=== PATIENT | male | born 2000 | race Two or more races ===

== ENCOUNTER 2024-09-15 03:55 | Emergency (ER) | payer MEDICAID, SELFPAY ==
[2024-09-15 03:56] VITALS: BP 175/108; PULSE 100; RESP 17; TEMP 36.7; O2SAT 98
[2024-09-15] MEDS: AMOXICILLIN/POT CLAV 875 TABLET 1 TAB PO (04:23)
[2024-09-15] MEDS: DEXAMETHASONE SOD PHOS INJ 10 MG/ML VIAL PO (04:24)
--- NOTE | 2024-09-15 04:26 | EDNOTE_ITS ---
<Statement entered by Estela Kay MD - 09/15/24 18:32> As co-signing physician, I was present and available for consult prn. I concur with the plan and care as documented by the midlevel provider. Upper Respiratory Inf. RME/HPI General Chief Complaint: Headache Stated Complaint: sinus pressure, headache, ears plugged Time Seen by Provider: 09/15/24 04:13 Arrival date/time: 09/15/24 03:55 24M with history of asthma and psych presents to ED with several days of cough, nasal congestion/pressure/pain, RIVERS, and ear plugged sensation. Limitations: no limitations Related Data Home Medications ?Medication ?Instructions ?Recorded ?Confirmed quetiapine 100 mg tablet 100 mg PO HS 06/01/21 sertraline 100 mg tablet 100 mg PO QDAY 06/01/2105/09 trazodone 100 mg tablet 100 mg PO QDAY 06/01/2105/09 Previous Rx's ?Medication ?Instructions ?Recorded dicyclomine 20 mg tablet 20 mg PO TID PRN pain #30 ta bs 12/26/21 ondansetron 4 mg disintegrating 4 mg PO Q8H PRN nausea and 12/26/21 tablet vomiting #10 tabs ibuprofen 800 mg tablet 800 mg PO TID PRN pain #30 t abs 01/02/22 amoxicillin 875 mg-potassium 1 tab PO BID 7 days #14 t abs 09/15/24 clavulanate 125 mg tablet Allergies Allergy/AdvReac Type Severity Reaction Status Date / Time No Known Allergies Allergy Verified 01/02/22 16:18 Review of Systems Review of Systems Systems Reviewed: All systems reviewed, normal except as documented Constitutional Constitutional: Reports system reviewed and no additional complaints, except as documented, Reports as per HPI, Denies fever(s) and Reports headache(s) ENT Ears, Nose, Mouth, and Throat: Reports as per HPI, Denies disequilibrium, Reports headache(s), Reports sinus pain and Reports sinus pressure Cardiovascular Cardiovascular: Reports system reviewed and no additional complaints, except as documented, Denies chest pain and Denies dyspnea Respiratory Respiratory: Reports system reviewed and no additional complaints, except as documented, Reports as per HPI, Reports cough and Denies dyspnea Gastrointestinal Gastrointestinal: Reports system reviewed and no additional complaints, except as documented, Denies abdominal pain, Denies nausea and Denies vomiting Neurologic Neurologic: Reports system reviewed and no additional complaints, except as documented, Denies confusion, Denies disequilibrium and Reports headache(s) Psychiatric Psychiatric: Denies confusion Past Medical History Past Medical History NEUROLOGIC: Negative Neurological Disorders CARDIAC: Positive Cardiac Disorders and Hypertension; Negative Congestive Heart Failure RESPIRATORY: Positive Asthma and Bronchitis; Negative Chronic Obstructive Pulmonary Disease (COPD) GASTROINTESTINAL: Negative Gastrointestinal Disorders GENITOURINARY: Negative Genitourinary Disorders or Renal Disease MUSCULOSKELETAL: Negative Musculoskeletal Disorders ENDOCRINE: Negative Endocrine Disorders, Diabetes Mellitus Type 1 or Diabetes Mellitus Type 2 HEMATOLOGIC: Negative Blood Disorders PSYCHO/SOCIAL: Positive Depression, Anxiety, Behavior Problems and Self- Mutilation Social History SMOKING STATUS: Never smoker SUBSTANCE USE: marijuana 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 Exam General Limitations: Present no limitations General appearance: Present alert and in no apparent distress Head Head exam: Present atraumatic Eye Eye exam: Present normal appearance, PERRL and EOMI ENT ENT exam: Present normal oropharynx and mucous membranes moist Expanded ENT Exam TM/Canal exam: Bilateral TM: effusion Nose exam: Present sinus tenderness Neck Neck exam: Present normal inspection, full ROM and trachea midline Chest Chest inspection: Present normal inspection and symmetric chest wall rise Respiratory Respiratory exam: Present normal lung sounds bilaterally Cardiovascular Cardiovascular exam: Present regular rate, normal rhythm and normal heart sounds Abdominal Exam Abdominal exam: Present soft and normal bowel sounds Extremities Exam Extremities exam: Present normal inspection and full ROM Back Exam Back exam: Present normal inspection and full ROM Neurological Exam Neurological exam: Present alert, oriented X3 and CN II-XII intact Psychiatric Psychiatric exam: Present normal affect and normal mood Skin Skin exam: Present warm, dry, intact and normal color Course Quality Measures none Orders Category Date Time Status Amoxicillin/Pot Clav 875 [Augmentin 875] Med 09/15/24 04:14 Discontinued 1 tab PO X1 ONE Dexamethasone Inj [Decadron Inj] Med 09/15/24 04:14 Discontinued 10 mg PO X1 ONE Vital Signs Vital signs: Vital Signs Temperature 98.0 F 09/15/24 03:56 Pulse Rate 100 09/15/24 03:56 Respiratory Rate 17 09/15/24 03:56 Blood Pressure 175/108 H 09/15/24 03:56 Pulse Oximetry (%) 98 09/15/24 03:56 Oxygen Delivery Method Room Air 09/15/24 03:56 O2 at 98% on RA and WNLs Upper Respiratory Infection MDM Narrative MDM Narrative:: 24M with history of asthma and psych presents to ED with several days of cough, nasal congestion/pressure/pain, RIVERS, and ear plugged sensation. Physical exam reveals bilateral effusion in TMs. Sinus tenderness. Patient is afebrile, calm, and alert. Likely sinusitis. Patient data External records reviewed:: [facility] previous records Clinical information provided by:: patient Social determinants that could affect healthcare access:: mental health Patient has the following chronic illnesses:: psych and asthma How is presenting disease/condition affected by chronic disease/condition?: exacerbated by Evaluation data The following diagnostics were reviewed and interpreted by me:: other (specify) (none) Lab and/or radiology exams considered but not ordered:: not ordered Interpretation Summary: n/a Medications / Prescriptions Medications or Prescriptions considered but not ordered:: ordered Medication administrations:: Medication Administration History Discontinued Medications Amoxicillin/Clavulanate Potassium (Amoxicillin/Pot Clav 875 Tablet) 1 tab PO X1 ONE Stop: 09/15/24 04:15 Dexamethasone Sodium Phosphate (Dexamethasone Sod Phos Inj 10 Mg/Ml Vial) 10 mg PO X1 ONE Stop: 09/15/24 04:15 above Consultations Consultation(s) initiated? (list below): No Diagnosis Upper Respiratory Differential Diagnosis: upper respiratory infection, croup, otitis media, sinusitis, viral infection, bronchitis, influenza and pharyngitis Most likely diagnosis given after review of the tests above:: sinusitis Admission Indicated Admission indicated?: not indicated Admission Request Was there a request for admission?: No Disposition Plan Disposition Plan: Discharge Discharge Attestation Discharge Attestation: The patient and all family members were given an opportunity to ask questions and understood the discharge instructions. Discharge instructions specifically effects, indications for sooner follow up or return to the emergency department, and the expected course of current diagnosis. Patient condition: Stable Discharge Plan Plan Patient Disposition: HOME (Self Care) Discharge Disposition comment: Stable Prescriptions/Referrals Prescriptions/Med Rec: New amoxicillin-pot clavulanate 875-125 mg tablet 1 tab PO BID 7 Days Qty: 14 0RF No Action sertraline 100 mg tablet 100 mg PO QDAY Patient Comments: TAKE ONE TABLET BY MOUTH EVERY MORNING quetiapine 100 mg tablet 100 mg PO HS Patient Comments: TAKE ONE TABLET BY MOUTH AT BEDTIME trazodone 100 mg tablet 100 mg PO QDAY Patient Comments: TAKE ONE TABLET BY MOUTH EVERY EVENING AT BED TIME dicyclomine 20 mg tablet 20 mg PO TID PRN (Reason: pain) Qty: 30 0RF ondansetron 4 mg tablet,disintegrating 4 mg PO Q8H PRN (Reason: nausea and vomiting) Qty: 10 0RF ibuprofen 800 mg tablet 800 mg PO TID PRN (Reason: pain) Qty: 30 0RF Problem List Clinical Impression: Sinusitis Patient/Caregiver Discharge Instructions Education Materials: ED Sinusitis (Antibiotic Treatment) Additional Instructions: Please follow-up with PCP within 24-48 hours and return immediately if symptoms worsen. Ibuprofen/Tylenol can be used simultaneously for greater fever/pain control. Benadryl is good for cough, congestion, and sleep. Print Language: Marshallese Stand Alone Forms: Patient Portal Info Letter PA/CHOKE SETTER Supervising Physician HAMMAD/CHOKE SETTER Supervising Physician: Dr. Kay
--- NOTE | 2024-09-15 04:31 | PC.NURSE ---
DECADRON WAS PO.
== END 2024-09-15 04:32 | disposition home or self-care (01) ==
LOC: SERX 04:17
PROVIDERS: Emergency Provider Emergency Medicine; PCP Family Medicine
DX: J32.9 Chronic sinusitis, unspecified (principal)
CPT/HCPCS: 99282; J1100; A9270

== ENCOUNTER 2024-11-08 02:33 | Emergency (ER) | payer MEDICAID, SELFPAY ==
[2024-11-08 02:34] VITALS: BMI 31.1
--- NOTE | 2024-11-08 02:37 | EKG_ITS ---
[facility] Test Date: 2024-11-08 Pat Name: JAYLYN GARCIA Department: Room: - Gender: Male Leader Writer: : 2000 Requested By: ED Temporary Provider Order Number: [id number] Reading MD: ED Temporary Provider Measurements Intervals [place] Rate: 108 P: 38 CA: 161 QRS: 82 QRSD: 92 T: 15 QT: 335 QTc: 450 Interpretive Statements SINUS TACHYCARDIA NONSPECIFIC T-WAVE ABNORMALITY ABNORMAL RHYTHM ECG Compared to ECG 04/03/2021 11:31:18 T-wave abnormality now present Right-axis deviation no longer present /store/S0/[id number].pdf
[2024-11-08 02:50] VITALS: BP 172/102; PULSE 91; RESP 18; TEMP 36.9; O2SAT 99
--- NOTE | 2024-11-08 02:59 | PD.EDSOB ---
ED SOB =RME/HPI General Chief Complaint: Shortness of Breath/Dyspnea Stated Complaint: SOB AND CHEST PRESSURE Time Seen by Provider: 11/08/24 02:47 Arrival date/time: 11/08/24 02:33 RME / HPI RME / HPI Narrative: 24-year-old male presents to the ED with a complaint of shortness of breath for the past 2 months, and cough with phlegm for the past 1 year. He has not visited with his primary care physician at [facility]. He takes no medications. He has had a runny nose and nasal congestion, occasional ear pain but no sore throat. He vomited x 1 tonight, and occasionally has posttussive emesis. He denies any diarrhea or abdominal pain. Related Data Home Medications ?Medication ?Instructions ?Recorded ?Confirmed quetiapine 100 mg tablet 100 mg PO HS 06/01/21 06/01/21 sertraline 100 mg tablet 100 mg PO QDAY 06/01/21 06/01/21 trazodone 100 mg tablet 100 mg PO QDAY 06/01/21 06/01/21 Previous Rx's ?Medication ?Instructions ?Recorded dicyclomine 20 mg tablet 20 mg PO TID PRN pain #30 tabs 12/26/21 ondansetron 4 mg disintegrating 4 mg PO Q8H PRN nausea and 12/26/21 tablet vomiting #10 tabs ibuprofen 800 mg tablet 800 mg PO TID PRN pain #30 tabs 01/02/22 albuterol sulfate 90 mcg/actuation 2 puff inhalation Q4H PRN 11/08/24 aerosol inhaler shortness of breath or wheezing #8.5 grams azithromycin 250 mg tablet 250 mg PO QDAY 4 days #4 tabs 11/08/24 (Zithromax Z-Nikhil) cetirizine 10 mg tablet (Zyrtec) 10 mg PO QDAY PRN allergy symptoms 11/08/24 #30 tabs Allergies Allergy/AdvReac Type Severity Reaction Status Date / Time No Known Allergies Allergy Verified 11/08/24 02:34 Review of Systems Review of Systems Systems Reviewed: All systems reviewed, normal except as documented Past Medical History Past Medical History NEUROLOGIC: Negative Neurological Disorders CARDIAC: Positive Cardiac Disorders and Hypertension; Negative Congestive Heart Failure RESPIRATORY: Positive Asthma and Bronchitis; Negative Chronic Obstructive Pulmonary Disease (COPD) GASTROINTESTINAL: Negative Gastrointestinal Disorders GENITOURINARY: Negative Genitourinary Disorders or Renal Disease MUSCULOSKELETAL: Negative Musculoskeletal Disorders ENDOCRINE: Negative Endocrine Disorders, Diabetes Mellitus Type 1 or Diabetes Mellitus Type 2 HEMATOLOGIC: Negative Blood Disorders PSYCHO/SOCIAL: Positive Depression, Anxiety, Behavior Problems and Self-Mutilation Social History SMOKING STATUS: Current every day smoker SUBSTANCE USE: marijuana 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 TMs and pharynx are without erythema. Nares are very pale and boggy. No maxillary or frontal sinus tenderness. Lung are clear, RRR, Abdomen is soft, nontender, and non-distended. Moves all extremities well. Course Course Course Narrative: Initial blood pressure 172/102. Repeat blood pressure 156/98 COVID, influenza A/B, rapid strep are all negative. CBC reveals a normal white count of 9.2, minimally elevated hemoglobin of 16.5 with normal platelets. CMP reveals normal electrolytes with the exception of a minimally elevated glucose of 113. Renal function is normal. ALT is mildly elevated at 60, normal alk phos, and total bilirubin. LDH is normal at 192, troponin is normal at less than 0.020, BNP is normal at less than 20. EKG reveals: Sinus tachycardia at 108. No STEMI noted. XR chest reveals: Increased bronchial markings suggestive of lower respiratory tract infection. Patient was given azithromycin 500 mg p.o. as well as metoprolol tartrate 25 mg p.o. prior to discharge. Quality Measures none Orders Category Date Time Status Bedside COVID-19 Antigen Test NOW Care 11/08/24 03:11 Completed Bedside Influenza A&B Antigen Test NOW Care 11/08/24 03:12 Completed EKG (ED ONLY) *Do not use* NOW Care 11/08/24 02:37 Completed EKG (ED Only) Stat Exams 11/08/24 02:37 Draft XR chest 2V Stat Exams 11/08/24 03:11 Taken BNP [B-Type Natriuretic Peptide] Stat Lab 11/08/24 03:25 Completed CBC Stat Lab 11/08/24 03:25 Completed CMP [Comprehensive Metabolic Panel] Stat Lab 11/08/24 03:25 Completed LDH (Lactate Dehydrogenase) Stat Lab 11/08/24 03:25 Completed Strep A Rapid Stat Lab 11/08/24 03:17 Completed Troponin I Stat Lab 11/08/24 03:25 Completed Azithromycin Po [Zithromax PO] Med 11/08/24 04:45 Discontinued 500 mg PO X1 ONE Metoprolol Tartrate [Lopressor] Med 11/08/24 04:48 Discontinued 25 mg PO X1 ONE Vital Signs Vital signs: Vital Signs Temperature 98.4 F 11/08/24 02:50 Pulse Rate 91 11/08/24 02:50 Respiratory Rate 18 11/08/24 02:50 Blood Pressure 172/102 H 11/08/24 02:50 Pulse Oximetry (%) 99 11/08/24 02:50 Oxygen Delivery Method Room Air 11/08/24 02:50 Shortness of Breath / Dyspnea MDM Narrative MDM Narrative:: Symptoms, exam and diagnostic studies are consistent with: Lower respiratory tract infection. Elevated blood pressure with history of hypertension and medication noncompliance. Allergic rhinitis Patient was discharged home in stable condition, with prescriptions for azithromycin, albuterol inhaler, Zyrtec. Patient/family advised to follow-up with their PCP in 24-48 hours, for a prescription for medications to control his elevated blood pressure. Encouraged to return to the ED for any new or worsening symptoms. Patient data External records reviewed:: [facility] previous records Clinical information provided by:: patient Social determinants that could affect healthcare access:: none (N/A) Patient has the following chronic illnesses:: Psych meds noted on medication list however patient denies any current medication usage. How is presenting disease/condition affected by chronic disease/condition?: uneffected by Evaluation data The following diagnostics were reviewed and interpreted by me:: lab results, radiology exam(s) and EKG tracing(s) Lab and/or radiology exams considered but not ordered:: N/A Interpretation Summary: As noted above Medications / Prescriptions Medications or Prescriptions considered but not ordered:: N/A Medication administrations:: Medication Administration History Discontinued Medications Azithromycin (Azithromycin 250 Mg Tablet) 500 mg PO X1 ONE Stop: 11/08/24 04:46 Last Admin: 11/08/24 05:01 Dose: 500 mg Documented By: JUANJO Metoprolol Tartrate (Metoprolol Tartrate 25 Mg Tablet) 25 mg PO X1 ONE Stop: 11/08/24 04:49 Last Admin: 11/08/24 05:00 Dose: 25 mg Documented By: JUANJO As noted above Consultations Consultation(s) initiated? (list below): Yes Consultation #1 (Physician, Specialty, Details): Discussed case with Dr. Gonzales Diagnosis Shortness of Breath Differential Diagnosis: community acquired pneumonia, asthma with exacerbation and other (Bronchitis) Most likely diagnosis given after review of the tests above:: Lower respiratory tract infection Admission Indicated Admission indicated?: not indicated Explain why admission is indicated or not indicated:: Patient is stable for discharge Admission Request Was there a request for admission?: No Admission Attestation Admission request attestation: N/A Disposition Plan Disposition Plan: Discharge Discharge Attestation Discharge Attestation: The patient and all family members were given an opportunity to ask questions and understood the discharge instructions. Discharge instructions specifically effects, indications for sooner follow up or return to the emergency department, and the expected course of current diagnosis. Patient condition: Stable Discharge Plan Plan Patient Disposition: HOME (Self Care) Discharge Disposition comment: Stable and improved Prescriptions/Referrals Prescriptions/Med Rec: New azithromycin [Zithromax Z-Nikhil] 250 mg tablet 250 mg PO QDAY 4 Days Qty: 4 0RF Rx Instructions: start on day 2 of therapy (Friday) Patient states he is not currently taking quetiapine. albuterol sulfate 90 mcg/actuation HFA aerosol inhaler 2 puff inhalation Q4H PRN (Reason: shortness of breath or wheezing) Qty: 8.5 0RF cetirizine [Zyrtec] 10 mg tablet 10 mg PO QDAY PRN (Reason: allergy symptoms) Qty: 30 0RF No Action sertraline 100 mg tablet 100 mg PO QDAY Patient Comments: TAKE ONE TABLET BY MOUTH EVERY MORNING quetiapine 100 mg tablet 100 mg PO Patient Comments: TAKE ONE TABLET BY MOUTH AT BEDTIME trazodone 100 mg tablet 100 mg PO QDAY Patient Comments: TAKE ONE TABLET BY MOUTH EVERY EVENING AT BED TIME dicyclomine 20 mg tablet 20 mg PO TID PRN (Reason: pain) Qty: 30 0RF ondansetron 4 mg tablet,disintegrating 4 mg PO Q8H PRN (Reason: nausea and vomiting) Qty: 10 0RF ibuprofen 800 mg tablet 800 mg PO TID PRN (Reason: pain) Qty: 30 0RF Referrals: No Primary/Family,Physician [Primary Care Provider] - In 1 week Problem List Clinical Impression: Community acquired pneumonia, Allergic rhinitis, Hypertension Patient/Caregiver Discharge Instructions Education Materials: Controlling High Blood Pressure, ED High Blood Pressure ..., ED Pneumonia (Adult), ED Allergic Rhinitis Additional Instructions: Take the antibiotics as prescribed and complete the course even though you may be feeling better. Use the Zyrtec medication to help control your allergies which will help control the runny nose, nasal congestion, postnasal drip, and chronic cough. Use the inhaler to help control your cough. Follow-up with your primary care physician in 24 to 48 hours. You will need to discuss with your doctor at [facility], medications to control your elevated blood pressure. Return to the ED for any new or worsening symptoms. Print Language: Macedonian Stand Alone Forms: Melody Award Info., Patient Portal Info Letter HAMMAD/DESI Supervising Physician HAMMAD/DESI Supervising Physician: Dr Gonzales
--- NOTE | 2024-11-08 03:11 | XR_ITS ---
Examination: PA lateral chest 2 views TECHNIQUE: Upright PA lateral chest 2 views Date and time: November 08, 2024, 0318 hours Comparison March 24, 2021 INDICATION: Shortness of breath beginning 2 months ago FINDINGS: Normal heart size. The lungs are clear. The osseous structures are intact IMPRESSION: No active disease
[2024-11-08 03:47] LABS: Basophils # (Auto) 0.0 Thou/mm3 (0.0-0.2); Basophils % (Auto) 0 % (0-2.5); Eosinophils # (Auto) 0.3 Thou/mm3 (0.0-0.5); Eosinophils % (Auto) 3 % (0-10); Hematocrit 47.7 % (41.0-53.0); Hemoglobin 16.5 g/dL (13.5-16.0); Immature Granulocytes Auto 0.08 Thou/mm3 (0.00-0.00); Lymphocytes # (Auto) 2.5 Thou/mm3 (1.0-4.8); Lymphocytes % (Auto) 28 % (10-50); Mean Corpuscular HGB Conc 34.6 g/dl (31.0-37.0); Mean Corpuscular Hemoglobin 30.3 pg (25.0-35.0); Mean Corpuscular Volume 88 fL (80-100); Monocytes # (Auto) 0.6 Thou/mm3 (0.0-0.8); Monocytes % (Auto) 6 % (0-12); Neutrophils # (Auto) 5.7 Thou/mm3 (1.8-7.7); Neutrophils % (Auto) 62 % (37-80); Nucleated Red Blood Cell # 0.00 Thou/mm3 (0.00-0.00); Nucleated Red Blood Cell % 0 /100 WBC (0); Platelet Count 322 Thou/mm3 (140-440); RDW Standard Deviation 41.5 fL (35.1-43.9); Red Blood Count 5.44 Miln/mm3 (4.50-5.90); White Blood Count 9.2 Thou/mm3 (3.8-10.6)
[2024-11-08 03:54] LABS: Strep A Rapid Negative (Negative)
[2024-11-08 04:02] LABS: Alanine Aminotransferase 60 U/L (10-49); Albumin, Serum 4.9 gm/dL (3.5-5.0); Albumin/Globulin Ratio 2.0 (1.2-2.2); Alkaline Phosphatase 86 U/L (46-116); Anion Gap 10 (7-16); Aspartate Amino Transferase 28 U/L (0-34); BUN/Creatinine Ratio 10 Ratio (12-20); Bilirubin,Total 0.4 mg/dL (0.3-1.2); Blood Urea Nitrogen 11 mg/dL (9-23); Calcium 9.9 mg/dL (8.3-10.6); Calcium (Corrected) 9.9 mg/dL (8.5-10.1); Carbon Dioxide 27.4 mMol/L (20.0-31.0); Chloride 104 mMol/L (98-107); Creatinine (Component) 1.1 mg/dL (0.6-1.3); Estimated Creatinine Clearance 131.5 mL/min (>60); Globulin 2.5 gm/dL (2.3-3.5); Glucose 113 mg/dL (74-106); LDH (Lactate Dehydrogenase) 192 U/L (120-246); Osmolality,Calculated 281 (275-295); Potassium 4.0 mMol/L (3.4-5.1); Sodium 141 mMol/L (136-145); Total Protein 7.4 gm/dL (5.7-8.2); Troponin I < 0.020 ng/mL (0.0-0.045); eGFR > 60 See Note
[2024-11-08 04:05] LABS: B-Type Natriuretic Peptide < 20 pg/mL (0-100)
[2024-11-08 04:15] VITALS: BP 156/98; PULSE 89; RESP 17; TEMP 37.1; O2SAT 98
[2024-11-08 05:00] VITALS: BP 165/98; PULSE 87
[2024-11-08] MEDS: METOPROLOL TARTRATE 25 MG TABLET PO (05:00)
[2024-11-08] MEDS: AZITHROMYCIN 250 MG TABLET 500 MG PO (05:01)
== END 2024-11-08 05:38 | disposition home or self-care (01) ==
PROVIDERS: Physician Assistant; Emergency Provider Emergency Medicine
DX: J18.9 Pneumonia, unspecified organism (principal); J30.9 Allergic rhinitis, unspecified; I10 Essential (primary) hypertension; R00.0 Tachycardia, unspecified; F17.210 Nicotine dependence, cigarettes, uncomplicated
CPT/HCPCS: 36415; 71046; 80053; 83615; 83880; 84484; 85025; 87400; 87651; 87811; 93005; 99283; A9270

== ENCOUNTER 2025-02-09 10:07 | Emergency (ER) | payer MEDICAID, SELFPAY ==
[2025-02-09 10:25] VITALS: BP 169/79; PULSE 98; RESP 18; TEMP 36.8; O2SAT 98; BMI 31.1
--- NOTE | 2025-02-09 13:13 | EDNOTE_ITS ---
<Statement entered by Estela Kay MD - 02/09/25 16:04> As co-signing physician, I was present and available for consult prn. I concur with the plan and care as documented by the midlevel provider. ED Ear RME/HPI General Chief complaint: Ear Stated complaint: BILATERAL EAR PAIN X 3 MONTHS Time Seen by Provider: 02/09/25 10:09 Arrival date/time: 02/09/25 10:07 24-year-old male presents to the emergency room today complains of bilateral ear pain ongoing x 3 months patient reports no fever nausea vomiting no headache dizziness or weakness patient has not yet sought out treatment. Limitations: no limitations Related Data Home Medications ?Medication ?Instructions ?Recorded ?Confirmed quetiapine 100 mg tablet 100 mg PO HS 06/01/21 sertraline 100 mg tablet 100 mg PO QDAY 06/01/2105/09 trazodone 100 mg tablet 100 mg PO QDAY 06/01/2105/09 Previous Rx's ?Medication ?Instructions ?Recorded dicyclomine 20 mg tablet 20 mg PO TID PRN pain #30 ta bs 12/26/21 ondansetron 4 mg disintegrating 4 mg PO Q8H PRN nausea and 12/26/21 tablet vomiting #10 tabs ibuprofen 800 mg tablet 800 mg PO TID PRN pain #30 t abs 01/02/22 albuterol sulfate 90 mcg/actuation 2 puff inhalation Q 4H PRN 11/08/24 aerosol inhaler shortness of breath or wheez ing #8.5 grams cetirizine 10 mg tablet (Zyrtec) 10 mg PO QDAY PRN all ergy symptoms 11/08/24 #30 tabs amoxicillin 875 mg-potassium 1 tab PO BID 10 days #20 tabs 02/09/25 clavulanate 125 mg tablet ibuprofen 800 mg tablet 800 mg PO TID PRN pain #30 t abs 02/09/25 ofloxacin 0.3 % ear drops 10 drop otic (ear) QDAY 10 d ays 02/09/25 #10 mL Allergies Allergy/AdvReac Type Severity Reaction Status Date / Time No Known Allergies Allergy Verified 02/09/25 10:10 Review of Systems Review of Systems Systems Reviewed: All systems reviewed, normal except as documented Constitutional Constitutional: Reports system reviewed and no additional complaints, except as documented, Denies fever(s) and Denies headache(s) Eyes Eyes: Reports system reviewed and no additional complaints, except as documented and Denies blurry vision ENT Ears, Nose, Mouth, and Throat: Reports system reviewed and no additional complaints, except as documented, Reports otalgia, Denies headache(s), Denies nasal congestion and Denies nasal discharge Cardiovascular Cardiovascular: Reports system reviewed and no additional complaints, except as documented, Denies chest pain and Denies dyspnea Respiratory Respiratory: Reports system reviewed and no additional complaints, except as documented, Denies chest congestion, Denies cough and Denies dyspnea Gastrointestinal Gastrointestinal: Reports system reviewed and no additional complaints, except as documented and Denies abdominal pain Integumentary/Breasts Skin/Breast: Reports system reviewed and no additional complaints, except as documented and Denies rash Neurologic Neurologic: Reports system reviewed and no additional complaints, except as documented, Reports as per HPI and Denies headache(s) Past Medical History Past Medical History NEUROLOGIC: Negative Neurological Disorders CARDIAC: Positive Cardiac Disorders and Hypertension; Negative Congestive Heart Failure RESPIRATORY: Positive Asthma and Bronchitis; Negative Chronic Obstructive Pulmonary Disease (COPD) GASTROINTESTINAL: Negative Gastrointestinal Disorders GENITOURINARY: Negative Genitourinary Disorders or Renal Disease MUSCULOSKELETAL: Negative Musculoskeletal Disorders ENDOCRINE: Negative Endocrine Disorders, Diabetes Mellitus Type 1 or Diabetes Mellitus Type 2 HEMATOLOGIC: Negative Blood Disorders PSYCHO/SOCIAL: Positive Depression, Anxiety, Behavior Problems and Self- Mutilation Social History SMOKING STATUS: Light (< 1 pack/day) SUBSTANCE USE: marijuana OCCUPATION: [employer] ED Exam General Limitations: Present no limitations General appearance: Present alert and in no apparent distress Head Head exam: Present atraumatic, normocephalic and normal inspection Eye Eye exam: Present normal appearance, PERRL and EOMI; Absent conjunctival injection ENT ENT exam: Present mucous membranes moist Expanded ENT Exam TM/Canal exam: Bilateral TM: erythema and bulging Neck Neck exam: Present normal inspection, full ROM and trachea midline Chest Chest inspection: Present normal inspection and symmetric chest wall rise Respiratory Respiratory exam: Present normal lung sounds bilaterally; Absent respiratory distress, wheezes, stridor or accessory muscle use Cardiovascular Cardiovascular exam: Present regular rate, normal rhythm and normal heart sounds Abdominal Exam Abdominal exam: Present soft and normal bowel sounds Extremities Exam Extremities exam: Present normal inspection and full ROM Back Exam Back exam: Present normal inspection and full ROM Neurological Exam Neurological exam: Present alert, oriented X3 and CN II-XII intact Psychiatric Psychiatric exam: Present normal affect and normal mood Skin Skin exam: Present warm, dry, intact and normal color Course Quality Measures none Vital Signs Vital signs: Vital Signs Temperature 98.2 F 02/09/25 10:25 Pulse Rate 98 02/09/25 10:25 Respiratory Rate 18 02/09/25 10:25 Blood Pressure 169/79 H 02/09/25 10:25 Pulse Oximetry (%) 98 02/09/25 10:25 O2 saturation 98% room air within normal limits Ear Patient data External records reviewed:: [facility] previous records Clinical information provided by:: patient Social determinants that could affect healthcare access:: none Patient has the following chronic illnesses:: None How is presenting disease/condition affected by chronic disease/condition?: no chronic disease Evaluation data The following diagnostics were reviewed and interpreted by me:: other (specify) (N/A) Lab and/or radiology exams considered but not ordered:: Considered not indicated Interpretation Summary: N/A Medications / Prescriptions Medications or Prescriptions considered but not ordered:: Given Medication administrations:: Given Consultations Consultation(s) initiated? (list below): No Diagnosis Ear Differential Diagnosis: otitis externa and otitis media Most likely diagnosis given after review of the tests above:: Otitis externa Admission Indicated Admission indicated?: not indicated Admission Request Was there a request for admission?: No Disposition Plan Disposition Plan: Discharge Discharge Attestation Discharge Attestation: The patient and all family members were given an opportunity to ask questions and understood the discharge instructions. Discharge instructions specifically effects, indications for sooner follow up or return to the emergency department, and the expected course of current diagnosis. Patient condition: Stable Medical Decision Making MDM Narrative MDM Narrative: 24-year-old male presents to the emergency room today complains of bilateral ear pain ongoing x 3 months patient reports no fever nausea vomiting no headache dizziness or weakness patient has not yet sought out treatment. Clinically patient well-appearing patient does not appear toxic no acute distress On exam patient is bilateral otitis externa patient patient symptomatically Explained to patient needs to follow-up with specialist and have outpatient laboratory testing patient states understanding Patient discharged home in no distress to follow-up with primary care doctor in the next 24 to 48 hours and for any worsening symptoms to return to the ER immediately Differential Diagnosis Differential Diagnosis: Otitis media, otitis externa Medical Records Medical records reviewed: Yes I reviewed the patient's medical records. Discharge Plan Plan Patient Disposition: HOME (Self Care) Discharge Disposition comment: Stable Prescriptions/Referrals Prescriptions/Med Rec: New ibuprofen 800 mg tablet 800 mg PO TID PRN (Reason: pain) Qty: 30 0RF ofloxacin 0.3 % drops 10 drop BOTH EARS QDAY 10 Days Qty: 10 0RF amoxicillin-pot clavulanate 875-125 mg tablet 1 tab PO BID 10 Days Qty: 20 0RF No Action sertraline 100 mg tablet 100 mg PO QDAY Patient Comments: TAKE ONE TABLET BY MOUTH EVERY MORNING quetiapine 100 mg tablet 100 mg PO HS Patient Comments: TAKE ONE TABLET BY MOUTH AT BEDTIME trazodone 100 mg tablet 100 mg PO QDAY Patient Comments: TAKE ONE TABLET BY MOUTH EVERY EVENING AT BED TIME dicyclomine 20 mg tablet 20 mg PO TID PRN (Reason: pain) Qty: 30 0RF ondansetron 4 mg tablet,disintegrating 4 mg PO Q8H PRN (Reason: nausea and vomiting) Qty: 10 0RF ibuprofen 800 mg tablet 800 mg PO TID PRN (Reason: pain) Qty: 30 0RF albuterol sulfate 90 mcg/actuation HFA aerosol inhaler 2 puff inhalation Q4H PRN (Reason: shortness of breath or wheezing) Qty: 8.5 0RF cetirizine [Zyrtec] 10 mg tablet 10 mg PO QDAY PRN (Reason: allergy symptoms) Qty: 30 0RF Problem List Clinical Impression: Otitis externa Patient/Caregiver Discharge Instructions Education Materials: Anatomy of the Ear Additional Instructions: Please follow up with your primary care doctor in the next 24-48hrs for any worsening symptoms return here immediately Print Language: German Stand Alone Forms: Melody Award Info., Patient Portal Info Letter PA/BPM DEVELOPER Supervising Physician PA/BPM DEVELOPER Supervising Physician: Dr. Kay
== END 2025-02-09 11:14 | disposition home or self-care (01) ==
LOC: SERX 10:32
PROVIDERS: Emergency Provider Nurse Practitioner Primary Care; PCP Family Medicine
DX: H60.93 Unspecified otitis externa, bilateral (principal)
CPT/HCPCS: 99281